=== PATIENT | female | born 1990 | race Caucasian/White ===

== ENCOUNTER 2017-10-04 02:56 | Emergency (ER) | payer SELFPAY ==
[~2017-10-04] VITALS: Ht 160 cm; Wt 109.1 kg
[2017-10-04 07:05] VITALS: BP 120/80
== END 2017-10-04 07:21 | disposition home or self-care (01) ==
LOC: EMS 02:57 → EDBD 02:57 → EMS 07:21
DX: F41.9 Anxiety disorder, unspecified (principal); F15.10 Other stimulant abuse, uncomplicated; F17.210 Nicotine dependence, cigarettes, uncomplicated; F12.10 Cannabis abuse, uncomplicated; I10 Essential (primary) hypertension
CPT/HCPCS: 93005; 99283; 99406